=== PATIENT | female | born 1990 | race Caucasian/White ===

== ENCOUNTER 2020-12-04 15:03 | Inpatient (IN) | payer OTHER ==
[~2020-12-04] VITALS: Ht 180.3 cm; Wt 68.1 kg
[2020-12-04 15:13] VITALS: BP 107/63
[2020-12-04 15:36] LABS: BASO % 0.4 % (0.0-1.0); EOS % 0.2 % (1.0-4.0); HEMATOCRIT 41.9 % (37.0-47.0); LYMPH # 1.8 10*3/uL (1.3-4.4); LYMPH % 34.2 % (27.0-41.0); MEAN CELL VOLUME 89.7 fl (81.0-99.0); MEAN CORPUSCULAR HGB CONC 33.4 g/dl (33.0-37.0); MEAN PLATELET VOLUME 10.1 fl (9.6-12.3); MONO # 0.3 10*3/uL (0.1-1.0); MONO % 6.3 % (3.0-9.0); NEUT # 3.1 10*3/uL (2.3-7.9); NEUT % 58.5 % (47.0-73.0); PLATELET COUNT AUTOMATED 277 10*3/uL (130-400); RED BLOOD COUNT 4.67 10*6/uL (4.10-5.10); RED CELL DISTRI WIDTH 12.7 % (0-14.5); WHITE BLOOD COUNT 5.2 10*3/uL (4.8-10.8)
[2020-12-04 15:51] LABS: ALBUMIN 3.8 gm/dl (3.1-4.5); ALKALINE PHOSPHATASE 50 U/L (45-117); BUN 7 mg/dl (7-24); CHLORIDE 111 mmol/L (98-107); CREATININE 0.85 mg/dL (0.55-1.02); POTASSIUM 3.6 mmol/L (3.5-5.1); SGOT/AST 6 IU/L (3-35); SGPT/ALT 25 U/L (12-78); SODIUM 143 mmol/L (136-145); TOTAL PROTEIN 7.3 gm/dL (6.4-8.2)
[2020-12-04 15:56] LABS: ETHYL ALCOHOL < 3.0 mg/dl (<3)
[2020-12-04 16:27] LABS: BILIRUBIN Negative (Negative); BLOOD Trace-Intact (Negative); CLARITY Clear (Clear); COLOR Yellow (Yellow); GLUCOSE Negative (Negative); KETONE Trace (Negative); LEUKO ESTERASE Negative (Negative); NITRITE Negative (Negative); PH 6.5 (4.5-8.0); SPECIFIC GRAVITY 1.025 (1.001-1.030)
[2020-12-04 16:39] LABS: BACTERIA TRACE; RBC 0-2 rbc/hpf (0-2); WBC 0-2 wbc/hpf (0-5)
[2020-12-04 16:42] LABS: URINE AMPHETAMINES > 1000 (1000ng/ml); URINE BARBITURATES < 200 (200ng/ml); URINE BENZODIAZEPINES < 200 (200ng/ml); URINE CANNABINOIDS (THC) < 50 (50ng/ml); URINE COCAINE < 300 (300ng/ml); URINE METHADONE < 300 (300ng/ml); URINE OPIATES < 300 (300ng/ml)
[2020-12-04 16:48] LABS: URINE PHENCYCLIDINE < 25 (25ng/ml)
[2020-12-04] MEDS ORDERED: SUBOXONE 4 MG-1 EACH PO (19:15)
[2020-12-04 20:00] VITALS: BP 116/72; BP 132/86
[2020-12-05] VITALS: BP 120/66
[2020-12-05 08:00] VITALS: BP 95/53
[2020-12-05 12:00] VITALS: BP 101/56
[2020-12-05 16:00] VITALS: BP 99/76
[2020-12-05 20:00] VITALS: BP 95/66
[2020-12-06] VITALS: BP 110/70
[2020-12-06 08:00] VITALS: BP 101/67
[2020-12-06 12:00] VITALS: BP 100/68
[2020-12-06 16:00] VITALS: BP 97/58
[2020-12-06 20:00] VITALS: BP 103/62
== END 2020-12-06 21:13 | disposition left against medical advice (07) | DRG 770 ==
LOC: ED 15:03 → 5E 15:36 → EDHOLD 15:36 → 5E 19:02
PROVIDERS: Emergency Medicine; Internal Medicine; ADMIT Emergency Medicine; ATTEND Emergency Medicine
DX: F11.23 Opioid dependence with withdrawal (principal); F11.29 Opioid dependence with unspecified opioid-induced disorder; F19.10 Other psychoactive substance abuse, uncomplicated; E83.41 Hypermagnesemia; F17.210 Nicotine dependence, cigarettes, uncomplicated; F32.9 Major depressive disorder, single episode, unspecified; F41.9 Anxiety disorder, unspecified; E87.8 Other disorders of electrolyte and fluid balance, not elsewhere classified; F14.10 Cocaine abuse, uncomplicated; Z71.6 Tobacco abuse counseling